=== PATIENT | male | born 1995 | race African-American/Black ===

== ENCOUNTER 2018-09-13 18:18 | Emergency (ER) | payer OTHER ==
[~2018-09-13] VITALS: Ht 185.4 cm; Wt 90.9 kg
[2018-09-13 21:00] VITALS: BP 138/77
[2018-09-13] MEDS ORDERED: CefTRIAXone SODIUM 1 GM/VIAL IM ONE (21:15)
[2018-09-13] MEDS ORDERED: AZITHROMYCIN 250 MG TABLET PO ONE (21:15)
[2018-09-13] MEDS ORDERED: LIDOCAINE/PF 1% 5 ML VIAL INJ ONE (21:15)
== END 2018-09-13 21:22 | disposition home or self-care (01) ==
LOC: EDBD 18:19 → EMS 18:19
DX: Z11.3 Encounter for screening for infections with a predominantly sexual mode of transmission (principal); Z20.2 Contact with and (suspected) exposure to infections with a predominantly sexual mode of transmission
CPT/HCPCS: 96372; 99283; J0696; J3490